=== PATIENT | male | born 1980 | race Two or more races ===

== ENCOUNTER 2021-07-02 14:27 | Outpatient (CLI) | payer OTHER | END 2021-07-02 14:58 | disposition home or self-care (01) | LOC: LAB 14:27 | DX: Z20.822 Contact with and (suspected) exposure to COVID-19 (principal); Z20.828 Contact with and (suspected) exposure to other viral communicable diseases; Z11.52 Encounter for screening for COVID-19 ==

== ENCOUNTER 2025-02-23 13:59 | Outpatient (CLI) | payer OTHER | END 2025-02-23 14:07 | disposition home or self-care (01) | LOC: SONOGRAMA 13:59 | PROVIDERS: ATTEND Surgery Surgery of the Hand | DX: D21.11 Benign neoplasm of connective and other soft tissue of right upper limb, including shoulder (principal) ==

== ENCOUNTER 2025-05-06 05:30 | Day surgery (SDC) | payer OTHER ==
[2025-05-04 11:23] LABS: BASO % 0.5 % (0.1-1.2); EOS # 0.56 (0.04-0.54); EOS % 7.0 % (0.7-7.0); LYMPH # 1.55 (1.18-3.74); LYMPH % 19.5 % (19.3-53.1); MEAN PLATELET VOLUME 8.50 fl (9.4-12.4); MONO # 0.58 (0.24-0.82); MONO % 7.3 % (4.7-12.5); NEUT # 5.19 (1.56-6.13); NEUT % 65.2 % (34.0-71.1); RED CELL DISTRIBUTION WIDTH 12.5 % (11.6-14.4)
[2025-05-04 11:27] LABS: URINE APPEARANCE Clear; URINE BILIRRUBIN Negative (NEGATIVE); URINE BLOOD Negative; URINE COLOR Yellow; URINE GLUCOSE Negative (NEGATIVE); URINE KETONE Trace (NEGATIVE); URINE LEUKOCYTE Negative; URINE NITRATE Negative; URINE PROTEIN Trace (NEGATIVE); URINE UROBILINOGEN 1.0 E.U./dl
[2025-05-04 11:44] LABS: INR 1.0
[2025-05-04 12:00] LABS: URINE EPITHELIAL CELLS 0-4 /HPF; URINE RBC 0-3 /HPF; URINE WBC 0-2 /hpf
[2025-05-04 12:01] LABS: URINE BACTERIA SOME
[2025-05-04 12:14] VITALS: BP 135/76
[2025-05-04 12:20] LABS: ALT/SGPT 46.0 U/L (12-78); AST/SGOT 26.0 U/L (15-37); BILIRUBIN TOTAL 0.45 mg/dL (0.3-1.2); BUN CREA RATIO 18.0 (7.0-25.0); CREATININE SERUM 0.91 mg/dL (0.70-1.30); GFR 89.69; GLOBULINA 3.2 G/DL (2.4-3.5); GLUCOSE FASTING 100.0 mg/dL (65-100); OSMOLALITY SERUM 284.0 MOSM/KG (275-295)
[~2025-05-06] VITALS: Ht 179.1 cm; Wt 80.7 kg
[2025-05-06] MEDS ORDERED: BUPIVACAINE HCL 30 ML VIAL IJ ONE (08:15)
[2025-05-06] MEDS ORDERED: LIDOCAINE HCL 1% 10ML VIAL IJ ONE (08:15)
[2025-05-06] MEDS ORDERED: ISOPROPYL ALCOHOL 30 ML OUNCE TOP ONE (08:15)
[2025-05-06] MEDS ORDERED: BACITRACIN 28.35 GM OINT.TUBE TOP ONE (08:15)
[2025-05-06] MEDS ORDERED: CEFAZOLIN SODIUM 1,000 MG VIAL IV ONE (08:30)
== END 2025-05-06 10:20 | disposition home or self-care (01) ==
LOC: CIR.AMB 05:30
PROVIDERS: ATTEND Surgery Surgery of the Hand
DX: M67.841 Other specified disorders of synovium, right hand (principal); D21.11 Benign neoplasm of connective and other soft tissue of right upper limb, including shoulder